=== PATIENT | female | born 1990 | race African-American/Black ===

== ENCOUNTER 2023-06-18 02:45 | Emergency (ER) | payer MEDICAID ==
[~2023-06-18] VITALS: Ht 167.6 cm; Wt 64.0 kg
[2023-06-18 02:48] VITALS: BP 138/92; PULSE 96; RESP 18; TEMP 97.9; O2SAT 98
== END 2023-06-18 04:24 | disposition left against medical advice (07) ==
LOC: ER 02:57
DX: R51.9 Headache, unspecified (principal); J45.909 Unspecified asthma, uncomplicated
CPT/HCPCS: 99283